=== PATIENT | male | born 1955 | race Caucasian/White ===

== ENCOUNTER 2025-02-23 14:13 | Emergency (ER) | payer OTHER, SELFPAY ==
[2025-02-23 14:13] VITALS: BP 138/80; PULSE 83; RESP 16; TEMP 36.6; O2SAT 99; BMI 33.5
--- NOTE | 2025-02-23 15:08 | RAD_ITS ---
PROCEDURE: HIPS B/L MIN 2 VIEWS W/ PELVIS 02/23/2025 REASON FOR EXAM: RIGHT POSTERIOR HIP PAIN TECHNIQUE: Procedure Code: [id number] Modality: DX Procedure: 6 view bilateral hip series to include the AP pelvis Laterality: Bilateral COMPARISON: None provided. RAD/Hips B/L min 2 views w/ Pelvis IMPRESSION: Degenerative changes are seen of the visualized lower lumbar spine. Sacroiliac joints appear symmetric and within the normal range for age. Mild bilateral hip joint degenerative changes are seen, with associated mild bi lateral superolateral joint space narrowing. No evidence of femoral head osteonecrosis. No fracture or dislocation is evident. If clinical concern persists, short-term follow-up imaging may be obtained to r ule out a currently occult fracture. Reading Location: [id number]
[2025-02-23] MEDS: Ketorolac 30 MG/ML Syringe IM (15:13)
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
== END 2025-02-23 16:38 | disposition home or self-care (01) ==
PROVIDERS: Emergency Provider Student in an Organized Health Care Education/Training Program; PCP Family Medicine; Visit Provider Student in an Organized Health Care Education/Training Program
DX: S39.012A Strain of muscle, fascia and tendon of lower back, initial encounter (principal); Y92.410 Unspecified street and highway as the place of occurrence of the external cause; V49.40XA Driver injured in collision with unspecified motor vehicles in traffic accident, initial encounter
CPT/HCPCS: 73521; 96372; 99283